=== PATIENT | male | born 1995 | race Caucasian/White ===

== ENCOUNTER 2024-01-01 16:40 | Emergency (ER) | payer OTHER, SELFPAY ==
[2024-01-01 16:44] VITALS: BP 149/104
[2024-01-01 17:09] LABS: % Eosinophils 3.8 % (0-6); % Immature Granulocytes 0.2 % (0-0.5); % Lymphocytes 17.6 % (20.5-51.1); % Neutrophils 72.4 % (42.2-75.2); Absolute Basophils 0.1 10^3/uL (0-0.2); Absolute Eosinophils 0.4 10^3/uL (0-0.7); Absolute Lymphocytes 1.6 10^3/uL (1.2-3.4); Absolute Monocytes 0.5 10^3/uL (0.1-0.6); Absolute Neutrophils 6.7 10^3/uL (1.4-6.5); Hematocrit 49.7 % (39.0-52.0); Hemoglobin 16.8 g/dL (13.0-18.0); Mean Corp Hgb Conc. 33.8 g/dL (33.0-37.0); Mean Corpuscular Hgb 29.4 pg (27.0-31.0); Mean Platelet Volume 10.1 fL (7.4-10.4); Nucleated Red Blood Cells % 0 % (-); Platelet Count 171 10^3/uL (130-400); Red Blood Cell Count 5.71 10^6/uL (4.70-6.10); White Blood Cell Count 9.3 10^3/uL (4.8-10.8)
[2024-01-01 17:23] LABS: ALT (SGPT) 60 U/L (0-50); AST (SGOT) 42 U/L (17-59); Albumin 4.8 g/dl (3.5-5.0); Alkaline Phosphatase 48 U/L (38-126); Blood Urea Nitrogen 14 mg/dl (9-20); Carbon Dioxide 30 mmol/L (22-30); Chloride 100 mmol/L (98-107); Glucose 126 mg/dl (70-99); Potassium 4.3 mmol/L (3.5-5.1); Sodium 139 mmol/L (135-145); Total Bilirubin 0.7 mg/dl (0.2-1.3); Total Protein 7.7 g/dl (6.3-8.2); eGFR > 60.00
[2024-01-01 17:32] LABS: Troponin I < 0.012 ng/ml
[2024-01-01 18:01] LABS: TSH Reflex To Free T4 1.56 uIU/ml (0.47-4.68)
--- NOTE | 2024-01-01 18:41 | ED.GENMED ---
History of Present Illness
General
Chief Complaint: Chest Pain
Source: patient
Exam Limitations: none
Time Seen by Provider: 01/01/24 17:43
Nursing documentation reviewed up to this point in time: agreed with
Travel History
Have you had any contact with someone who has COVID-19?: No
Do you have any symptoms of coronavirus? Fever > 100 degrees, chills, cough, shortness of breath, sore throat, loss of taste or smell, muscle aches, or headache?: No
History of Present Illness
History of Present Illness:
28 yo male with h/o hypothyroidism presents stating he's had pain across his lower back for past week. Since 12 a.m. today has had constant, sharp shooting left chest pains. Didn't sleep well through the night due to these pains. Went to [facility],
had EKG and was told there was an abnormality, irregular rate so sent here for evaluation. Pt denies caffeine use. He states the pains are there now.
Past History
Past History
ED Past Medical History: Hypothyroidism
ED Past Surgical History: Urological
Social History
Tobacco: Non-smoker
Alcohol: Occasional
Personal: Single
Living: with family
Employment: Employed
Review of Systems
Review of Systems
Allergies reviewed?: Yes
All Other Systems: ROS reviewed and negative except as documented in HPI and ROS
Constitutional: Denies fever
Respiratory: Denies cough or trouble breathing
Cardiac: Reports chest pain and palpitations; Denies diaphoresis or syncope
ABD/GI: Denies abdominal pain or nausea
Musculoskeletal: Reports back pain (low back pain)
Skin: Reports no symptoms
Neurological: Reports no symptoms
Phy Exam
Physical Exam
Physical Exam:
GENERAL: No acute distress. A&Ox3.
CONSTITUTIONAL: Afebrile.
EYES: clear, conjunctivae normal
ENMT: moist mucus membranes, Pharynx nl
RESPIRATORY: Regular respirations, nonlabored, lungs clear.
CARDIOVASCULAR: Regular rate and occasional irregular beat, no murmurs, no rubs.
GI: Soft, nontender, normal BS
MUSCULOSKELETAL: Moves with ease. Well perfused. Full ROM of spine, mild tenderness to palpation of lower back ST, also palpation of left chest pectoral muscle elicits pain.
SKIN: Warm, dry, pink
PSYCH: Normal mood and affect. Well kept, interactive and appropriate
NEUROLOGIC: Awake, alert and oriented. No focal neurological deficits
Scores
Heart Score for Chest Pain Patients
STEMI patient?: Not applicable
Course
Orders/Labs/Results
Orders:
Orders
01/01/24 16:46
Electrocardiogram (*1) Urgent
Reason for Study: Chest Pain
EKG- Treatment ONCE
01/01/24 16:53
Complete Blood Count/With Diff Urgent
Comprehensive Metabolic Panel Urgent
TSH Reflex To Free T4 Urgent
Troponin I Urgent
01/01/24 17:42
CR Chest - 2 Views Urgent
Comment:
Reason For Exam: SOB
Abnormal Lab Results
01/01/24
16:53
Absolute Neuts (auto) 6.7 H 10^3/uL
(1.4-6.5)
Lymphocytes % 17.6 L %
(20.5-51.1)
Glucose 126 H mg/dl
(70-99)
ALT 60 H U/L
(0-50)
01/01/24 16:53
01/01/24 16:53
Vital Signs
Initial and Last Documented VS:
Initial Vital Signs
Temp Pulse Resp BP Pulse Ox
97.9 F 78 22 149/104 100
01/01/24 16:44 01/01/24 16:44 01/01/24 16:44 01/01/24 16:44 01/01/24 16:44
Last Documented Vital Signs
Temp Pulse Resp BP Pulse Ox
97.9 F 70 16 132/94 100
01/01/24 16:44 01/01/24 19:24 01/01/24 19:24 01/01/24 19:24 01/01/24 16:44
MDM/Problems Addressed
Differential Diagnosis Includes:
Musculoskeletal back pain
Musculoskeletal chest pain
MDM/Problems Addressed:
28 yo male with h/o hypothyroidism presents stating he's had pain across his lower back for past week. Since 12 a.m. today has had constant, sharp shooting left chest pains. Didn't sleep well through the night due to these pains. Went to [facility],
had EKG and was told there was an abnormality, irregular rate so sent here for evaluation. Pt denies caffeine use. He states the pains are there now.
EKG: NSR with PAC's
NAD
01/01/2024 1805 PM
CBC normal
CMP normal
Troponin normal
TSH normal
01/01/2024 1905 PM
Chest x-ray normal
Pt reassured PAC's are not pathologic in his case
This is most likely musculoskeletal pain as patient is tender across his lower back soft tissues and pain is worse when he bends to touch his toes
Also left chest wall is tender to palpation
Pt stable for discharge.
*Critical Care Note
Total Time (30-74mins, 75-104mins- exclusive of procedures): Not Applicable
ED Attending Note
-
Portions of this chart may have been created with voice recognition software.� Occasional wrong word or��sound alike� substitutions may have occurred due to the inherent limitations of voice recognition software.
Discharge Plan
Departure
Patient Disposition: Home (Routine Discharge)
Date of Disposition: 01/01/24
Time of Disposition: 19:12
Patient with high blood pressure during this ER visit?: No
Condition: Good
Discharge Problem:
Low back pain, Atypical chest pain, Acute chest wall pain
Instructions: Chest Pain That Is Not Caused by the Heart (DC), Low Back Pain ED, Heart Palpitations
Referrals:
Micheal Latif DO [Family Provider] - As needed
Activity Restrictions/Additional Instructions:
As we discussed, there is nothing worrisome in your workup here today. No sign of your heart being the cause of your symptoms.
The palpitations or skipped beats that you feel are called PACs or premature atrial contractions and they are not dangerous or worrisome in someone your age with no previous cardiac history.
Your back and chest wall pains are most likely muscular. Ibuprofen 600 mg (with food) every 6 hours as needed for pain.
Start exercising to strengthen your abdominal and core muscles, this can help back pain
Interventions
Interventions:
*General Assessment Last Done: 01/01/24 19:39
*Neglect/Abuse Screening Last Done: 01/01/24 16:42
*Nursing Disposition Last Done: 01/01/24 19:39
ED- Cardiac Assessment Last Done: 01/01/24 18:30
Discharge Date and Time
Discharge Date/Time: 01/01/24 19:40
[2024-01-01 19:24] VITALS: BP 132/94
== END 2024-01-01 19:40 | disposition home or self-care (01) ==
LOC: EMR 16:40
PROVIDERS: EMERGENCY PHYSICIAN Emergency Medicine; FAMILY PHYSICIAN Family Medicine
DX: R07.89 Other chest pain (principal); M54.50 Low back pain, unspecified; E03.9 Hypothyroidism, unspecified
CPT/HCPCS: 99285; 71046; 80053; 84443; 84484; 85025; 93005; 99284

== ENCOUNTER → 2024-02-17 09:59 | Outpatient (REF) | payer OTHER, SELFPAY | LOC: RAD 09:59 | PROVIDERS: ATTENDING PHYSICIAN Otolaryngology; FAMILY PHYSICIAN Family Medicine | DX: R13.14 Dysphagia, pharyngoesophageal phase (principal) | CPT/HCPCS: 74210 ==

== ENCOUNTER → 2024-06-01 12:50 | Outpatient (REF) | payer OTHER, BC, SELFPAY | LOC: HWRCS 12:50 | PROVIDERS: ATTENDING PHYSICIAN Internal Medicine Cardiovascular Disease; FAMILY PHYSICIAN Family Medicine | DX: R00.2 Palpitations (principal) | CPT/HCPCS: 93306 ==

== ENCOUNTER 2024-06-28 19:24 | Emergency (ER) | payer BC, SELFPAY ==
[2024-06-28 19:24] VITALS: BMI 36.9
[2024-06-28 19:26] VITALS: BP 190/107
[2024-06-28 20:00] VITALS: BP 171/91
[2024-06-28 20:01] VITALS: BP 171/91
--- NOTE | 2024-06-28 20:29 | ED.GENMED ---
History of Present Illness
General
Chief Complaint: Breathing Problem
Source: patient and spouse
Exam Limitations: none
Time Seen by Provider: 06/28/24 20:10
Nursing documentation reviewed up to this point in time: agreed with
History of Present Illness
History of Present Illness:
29-year-old male presents with shortness of breath, asthma as a child none recently was doing some outside work recently [place] thought he was having an asthma flare using his inhaler started on prednisone 50
mg yesterday at an urgent care feels like he cannot empty his lungs or get a complete breath, no fevers no hemoptysis no calf pain
Past History
Past History
ED Past Medical History: Asthma and Hypothyroidism
ED Past Surgical History: Urological
Social History
Tobacco: Non-smoker
Alcohol: Occasional
Drug: None
Personal: Single
Living: with family
Employment: Employed
Review of Systems
Review of Systems
All Other Systems: Not applicable
Constitutional: Denies fever or fatigue
EENT: Reports no symptoms
Respiratory: Reports cough and trouble breathing
Cardiac: Reports no symptoms
ABD/GI: Reports no symptoms
: Reports no symptoms
Musculoskeletal: Reports no symptoms
Skin: Reports no symptoms
Endocrine: Reports no symptoms
Hematologic/Lymphatic: Reports no symptoms
Phy Exam
Physical Exam
Physical Exam:
Physical Exam
General: 29 male coughing
Neck: No jaundice
Heart: s1/s2 regular rate and rhythm, no murmur. equal radial pulses.
Lungs: Diminished bilateral
Abdomen: Nontender
Neuro: alert and oriented. no focal neurological deficits
Skin: no rash
Psychiatric: well kept. interactive and cooperative
Extremities: no edema. no calf tenderness.
Course
Orders/Labs/Results
Orders:
Orders
06/28/24 19:33
Electrocardiogram (*1) Urgent
Reason for Study: Shortness of Breath
EKG- Treatment ONCE
06/28/24 20:28
Cardiac Monitoring- Treatment ONCE
Dexamethasone Sod Phosphate [Decadron] 10 mg IV NOW STA
Ipratropium/Albuterol Sulfate [Duoneb] 3 ml INH R NOW STA
CR Chest - 2 Views Urgent
Comment:
Reason For Exam: sob
06/28/24 20:52
Complete Blood Count/With Diff Urgent
Comprehensive Metabolic Panel Urgent
D-Dimer Urgent
NT-proBNP Urgent
Troponin I Urgent
Abnormal Lab Results
06/28/24
20:52
Absolute Neuts (auto) 7.1 H 10^3/uL
(1.4-6.5)
Neutrophils % 82.2 H %
(42.2-75.2)
Lymphocytes % 13.7 L %
(20.5-51.1)
Carbon Dioxide 19 L mmol/L
(22-30)
Glucose 170 H mg/dl
(70-99)
Calcium 10.7 H mg/dl
(8.4-10.2)
ALT 54 H U/L
(0-50)
Albumin 5.2 H g/dl
(3.5-5.0)
06/28/24 20:52
06/28/24 20:52
Vital Signs
Initial and Last Documented VS:
Initial Vital Signs
Temp Pulse Resp BP Pulse Ox
98.1 F 98 16 190/107 97
06/28/24 19:26 06/28/24 19:26 06/28/24 19:26 06/28/24 19:26 06/28/24 19:26
Last Documented Vital Signs
Temp Pulse Resp BP Pulse Ox
98.1 F 106 18 165/100 97
06/28/24 19:26 06/28/24 21:45 06/28/24 21:45 06/28/24 21:09 06/28/24 21:45
MDM/Problems Addressed
Differential Diagnosis Includes:
Asthma bronchitis pneumonia heart failure less likely PE
MDM/Problems Addressed:
Shortness of breath
Chronic conditions affecting care:
Asthma
Acute Exacerbation and/or Progression of Chronic Illness:
Asthma
*Radiology
Radiology exam reviewed: preliminary read by ED provider
*Pulse Oximetry
Patient hypoxic: no
*EKG
Interpreted by ED Provider?: Yes
Interpretation: abnormal
Comparison EKG: no comparison EKG present
Heart Rate: 78
Rate: normal
Rhythm: sinus
Ischemia: non-specific ST changes
*Jamb Cutter Interpretation
Rate: normal
Interpretation: normal
Rhythm: sinus
*Critical Care Note
Total Time (30-74mins, 75-104mins- exclusive of procedures): Not Applicable
Update Note
Update Note:
Update initial peak flow 3 50-400 will try nebs IV steroids also check a proBNP and D-dimer chest x-ray
9:30 PM chest x-ray noted no obvious pneumothorax troponin proBNP noted D-dimer is pending
10:12 PM patient feeling better peak flow up to 500
He has 4 more days of 50 mg prednisone will have him continue that we will set him up with a nebulizer and follow-up with the PCP and pulmonary
ED Attending Note
-
Portions of this chart may have been created with voice recognition software.� Occasional wrong word or��sound alike� substitutions may have occurred due to the inherent limitations of voice recognition software.
Discharge Plan
Departure
Patient Disposition: Home (Routine Discharge)
Date of Disposition: 06/28/24
Time of Disposition: 22:17
Patient with high blood pressure during this ER visit?: No
Condition: Good
Covid-19: Not Applicable
Discharge Problem:
Asthma
Instructions: Asthma, Adult (DC)
Prescriptions:
New
albuterol sulfate 2.5 mg/0.5 mL solution for nebulization
5 mg inhalation Q4H PRN (Reason: bronchospasm) Qty: 30 2RF
Referrals:
Michael Latif DO [Family Provider] - Next open appointment
Maddy العراقي DO [Active] - Next open appointment
Activity Restrictions/Additional Instructions:
Continue prednisone 50 mg a day as prescribed
Albuterol 1 to 2 puffs every 4-6 hours via puffer or nebulizer
Interventions
Interventions:
*Risk Screen - Suicide Last Done: 06/28/24 19:29
*General Assessment Last Done: 06/28/24 19:29
*Neglect/Abuse Screening Last Done: 06/28/24 19:29
ED- Fall Risk Assessment Last Done: 06/28/24 21:33
ED- Cardiac Assessment Last Done: 06/28/24 21:33
ED- Pulmonary Assessment Last Done: 06/28/24 21:33
Discharge Date and Time
Print Language: JAPANESE
[2024-06-28] MEDS: DECADRON 10 MG IV (20:34)
[2024-06-28] MEDS: DUONEB 3 ML INH (20:35)
[2024-06-28 21:04] LABS: % Basophils 0.3 % (0-2); % Eosinophils 0.1 % (0-6); % Immature Granulocytes 0.2 % (0-0.5); % Lymphocytes 13.7 % (20.5-51.1); % Monocytes 3.5 % (1.7-9.3); % Neutrophils 82.2 % (42.2-75.2); Absolute Lymphocytes 1.2 10^3/uL (1.2-3.4); Absolute Monocytes 0.3 10^3/uL (0.1-0.6); Absolute Neutrophils 7.1 10^3/uL (1.4-6.5); Hematocrit 47.3 % (39.0-52.0); Mean Corp Hgb Conc. 35.9 g/dL (33.0-37.0); Mean Corpuscular Hgb 30.6 pg (27.0-31.0); Mean Corpuscular Volume 85.1 fL (80.0-94.0); Mean Platelet Volume 9.3 fL (7.4-10.4); Nucleated Red Blood Cells % 0 % (-); Platelet Count 230 10^3/uL (130-400); Red Blood Cell Count 5.56 10^6/uL (4.70-6.10); Red Cell Dist. Width 11.9 % (11.5-14.5); White Blood Cell Count 8.6 10^3/uL (4.8-10.8)
[2024-06-28 21:09] VITALS: BP 165/100
[2024-06-28 21:18] LABS: ALT (SGPT) 54 U/L (0-50); AST (SGOT) 42 U/L (17-59); Albumin 5.2 g/dl (3.5-5.0); Alkaline Phosphatase 62 U/L (38-126); Blood Urea Nitrogen 14 mg/dl (9-20); Calcium 10.7 mg/dl (8.4-10.2); Carbon Dioxide 19 mmol/L (22-30); Chloride 104 mmol/L (98-107); Estimated Creatinine Clearance > 125 ml/min; Glucose 170 mg/dl (70-99); Potassium 4.4 mmol/L (3.5-5.1); Sodium 141 mmol/L (135-145); Total Bilirubin 0.6 mg/dl (0.2-1.3); Total Protein 8.2 g/dl (6.3-8.2); eGFR > 60.00
[2024-06-28 21:28] LABS: NT-proBNP 36.9 pg/ml; Troponin I < 0.012 ng/ml
[2024-06-28 21:48] LABS: D-Dimer < 0.27 ug/mlFEU (0.00-0.50)
[2024-06-28 22:00] VITALS: BP 162/86
== END 2024-06-28 22:41 | disposition home or self-care (01) ==
LOC: EMR 19:24
PROVIDERS: EMERGENCY PHYSICIAN Emergency Medicine; FAMILY PHYSICIAN Family Medicine
DX: J45.909 Unspecified asthma, uncomplicated (principal); E03.9 Hypothyroidism, unspecified
CPT/HCPCS: 99283; 94640; 96374; 71046; 80053; 83880; 84484; 85025; 85379; 93005

== ENCOUNTER 2024-06-30 21:51 | Emergency (ER) | payer BC, SELFPAY ==
[2024-06-30 21:54] VITALS: BP 178/100
[2024-06-30 22:17] LABS: COVID-19 Antigen Negative (Negative)
[2024-07-01 00:32] VITALS: BP 146/83
[2024-07-01 00:48] LABS: % Basophils 0.1 % (0-2); % Immature Granulocytes 2.2 % (0-0.5); % Lymphocytes 10.4 % (20.5-51.1); % Monocytes 6.4 % (1.7-9.3); % Neutrophils 80.9 % (42.2-75.2); Absolute Immature Granulocytes 0.3 10^3/uL (0-0.05); Absolute Lymphocytes 1.5 10^3/uL (1.2-3.4); Absolute Monocytes 0.9 10^3/uL (0.1-0.6); Absolute Neutrophils 11.6 10^3/uL (1.4-6.5); Hematocrit 44.5 % (39.0-52.0); Hemoglobin 15.7 g/dL (13.0-18.0); Mean Corp Hgb Conc. 35.3 g/dL (33.0-37.0); Mean Corpuscular Hgb 30.8 pg (27.0-31.0); Mean Corpuscular Volume 87.4 fL (80.0-94.0); Mean Platelet Volume 9.4 fL (7.4-10.4); Nucleated Red Blood Cells % 0 % (-); Platelet Count 221 10^3/uL (130-400); Red Blood Cell Count 5.09 10^6/uL (4.70-6.10); Red Cell Dist. Width 12.4 % (11.5-14.5); White Blood Cell Count 14.3 10^3/uL (4.8-10.8)
[2024-07-01 01:04] LABS: Troponin I < 0.012 ng/ml
--- NOTE | 2024-07-01 01:05 | ED.GENMED ---
History of Present Illness
General
Chief Complaint: Breathing Problem
Source: patient and family
Exam Limitations: none
Time Seen by Provider: 06/30/24 23:58
Nursing documentation reviewed up to this point in time: agreed with
History of Present Illness
History of Present Illness:
Pleasant 29-year-old male presents with congestion and shortness of breath. Was seen in the emergency department several days ago. Discharged with an asthma exacerbation. Patient was prescribed and given a nebulizer and albuterol. He states that
he took the nebulizer to this evening and it did not seem to help. He has also been taking prednisone as well as his rescue inhaler. Patient had a negative D-dimer at his last visit. Denies fever, chills, calf pain. Denies any abdominal pain or
headache.
Past History
Past History
ED Past Medical History: Asthma and Hypothyroidism
ED Past Surgical History: Urological
Social History
Tobacco: Non-smoker
Alcohol: Occasional
Drug: None
Personal: Single
Living: with family
Employment: Employed
Review of Systems
Review of Systems
Allergies reviewed?: Yes
Other source history: family
All Other Systems: ROS reviewed and negative except as documented in HPI and ROS
Constitutional: Reports no symptoms
EENT: Reports no symptoms
Respiratory: Reports cough and trouble breathing
Cardiac: Reports no symptoms
ABD/GI: Reports no symptoms
: Reports no symptoms
Musculoskeletal: Reports no symptoms
Skin: Reports no symptoms
Neurological: Reports no symptoms
Endocrine: Reports no symptoms
Hematologic/Lymphatic: Reports no symptoms
Psychiatric: Reports no symptoms
Phy Exam
General Physical Exam
General Presentation: well appearing and no apparent distress
General Skin: warm and dry
General Habitus: normal
General Mental: alert
General Hydration: appears well hydrated
ENT Exam
ENT Exam: EOMI, pharynx normal, neck supple and normocephalic
Eye Exam
Eye Exam: PERRL, cornea clear and conjunctiva normal
Cardiovascular Exam
Cardiovascular Exam: regular rate/rhythm, no edema, no murmur and normal peripheral pulses
Pulmonary Exam
Pulmonary Exam: lungs clear, no respiratory distress, no rales, no crackles, no rhonchi, no stridor, no wheezing and no cough
Gastrointestinal Exam
Gastrointestinal Exam: normal bowel sounds, non tender, soft, no organomegaly, no pulsatile mass and non distended
Neurological Exam
Neurological Exam: alert, oriented x3, no motor deficits and speech normal
Musculoskeletal Exam
Musculoskeletal Exam: full ROM and no edema
Skin Exam
Skin Exam: normal color, warm/dry, no rash and no petechia
Psychiatric Exam
Psychiatric Exam: normal mood/affect
Course
Orders/Labs/Results
Orders:
Orders
06/30/24 21:58
CR Chest - 2 Views Urgent
Comment:
Reason For Exam: SOB
06/30/24 21:59
COVID-19 Antigen Urgent
Source: Nasal Swab
06/30/24 22:09
Electrocardiogram (*1) Urgent
Reason for Study: Shortness of Breath
EKG- Treatment ONCE
07/01/24 00:16
CT Chest Pe Study Urgent
Comment:
Reason For Exam: prolonged LICEA
07/01/24 00:25
Complete Blood Count/With Diff Urgent
Comprehensive Metabolic Panel Urgent
Troponin I Urgent
07/01/24 01:58
Ipratropium/Albuterol Sulfate [Duoneb] 3 ml INH R NOW ONE
07/01/24 02:22
Tiotropium Patterson 2.5 Mcg [Spiriva Respimat 2.5 Mcg] 2 puff INH R NOW STA
Abnormal Lab Results
07/01/24
00:25
WBC 14.3 H 10^3/uL
(4.8-10.8)
Abs Immat Gran (auto) 0.3 H 10^3/uL
(0-0.05)
Absolute Neuts (auto) 11.6 H 10^3/uL
(1.4-6.5)
Absolute Monos (auto) 0.9 H 10^3/uL
(0.1-0.6)
Immature Gran % 2.2 H %
(0-0.5)
Neutrophils % 80.9 H %
(42.2-75.2)
Lymphocytes % 10.4 L %
(20.5-51.1)
Potassium 5.2 H mmol/L
(3.5-5.1)
BUN 28 H mg/dl
(9-20)
Glucose 120 H mg/dl
(70-99)
07/01/24 00:25
07/01/24 00:25
Vital Signs
Initial and Last Documented VS:
Initial Vital Signs
Temp Pulse Resp BP Pulse Ox
98.9 F 86 20 178/100 99
06/30/24 21:54 06/30/24 21:54 06/30/24 21:54 06/30/24 21:54 06/30/24 21:54
Last Documented Vital Signs
Temp Pulse Resp BP Pulse Ox
98.9 F 48 18 160/93 97
06/30/24 21:54 07/01/24 00:32 07/01/24 00:32 07/01/24 02:00 07/01/24 02:30
*Critical Care Note
Total Time (30-74mins, 75-104mins- exclusive of procedures): Not Applicable
ED Attending Note
-
Portions of this chart may have been created with voice recognition software.� Occasional wrong word or��sound alike� substitutions may have occurred due to the inherent limitations of voice recognition software.
Discharge Plan
Departure
Patient Disposition: Home (Routine Discharge)
Date of Disposition: 07/01/24
Time of Disposition: 02:25
Patient with high blood pressure during this ER visit?: Yes
Condition: Good
Discharge Problem:
Acute dyspnea
Instructions: Shortness of Breath (Dyspnea) (DC), BLOOD PRESSURE
Prescriptions:
No Action
albuterol sulfate 2.5 mg/0.5 mL solution for nebulization
5 mg inhalation Q4H PRN (Reason: bronchospasm) Qty: 30 2RF
albuterol sulfate 90 mcg/actuation HFA aerosol inhaler
2 puff inhalation QID PRN (Reason: shortness of breath or wheezing) Qty: 8.5 6RF
Referrals:
Savannah Back MD [Active] - Next open appointment
Michael Latif DO [Family Provider] -
Activity Restrictions/Additional Instructions:
It was a pleasure meeting you and taking part in your care. We hope for your continued healing and wellness.
Please read discharge instructions in their entirety. However, they are for general education and may not describe your exact diagnosis at discharge. Information on your ER visit and medical conditions were discussed with you along with appropriate
follow up information...
If indicated, please take your medications as instructed and indicated on discharge paperwork.
Please schedule a follow up appointment as directed. Call to schedule an appointment
Please return to the emergency department with ANY change in, persisting, or worsening of symptoms. If any of your symptoms do not improve, or persist, or become more severe within 6-12 hours, please return to the emergency department for further
care.
Please return to the emergency department if you develop a headache, neck pain/stiffness, fever greater than 100.4F, chest pain, shortness of breath, persistent nausea, vomiting, slurred speech, difficulty walking, numbness/tingling, weakness, signs
of infection or any other symptoms that are worrisome to you.
If you have any questions or concerns please do not hesitate to call the Hospital at or E-mail me directly at [email or web address]
Interventions
Interventions:
*Risk Screen - Suicide Last Done: 06/30/24 21:54
*General Assessment Last Done: 06/30/24 21:54
*Neglect/Abuse Screening Last Done: 06/30/24 21:54
ED- Fall Risk Assessment Last Done: 07/01/24 02:49
*ED COVID-19 Vaccine History Last Done: 07/01/24 02:49
*Nursing Disposition Last Done: 07/01/24 02:49
ED- Cardiac Assessment Last Done: 07/01/24 00:13
ED- Pulmonary Assessment Last Done: 07/01/24 00:13
Discharge Date and Time
Discharge Date/Time: 07/01/24 02:50
Print Language: PERSIAN
[2024-07-01 01:16] LABS: ALT (SGPT) 38 U/L (0-50); AST (SGOT) 31 U/L (17-59); Albumin 4.8 g/dl (3.5-5.0); Alkaline Phosphatase 68 U/L (38-126); Blood Urea Nitrogen 28 mg/dl (9-20); Calcium 10.1 mg/dl (8.4-10.2); Carbon Dioxide 22 mmol/L (22-30); Chloride 106 mmol/L (98-107); Glucose 120 mg/dl (70-99); Potassium 5.2 mmol/L (3.5-5.1); Sodium 141 mmol/L (135-145); Total Bilirubin 0.5 mg/dl (0.2-1.3); Total Protein 7.6 g/dl (6.3-8.2); eGFR > 60.00
[2024-07-01 01:30] VITALS: BP 143/80
[2024-07-01 02:00] VITALS: BP 160/93
[2024-07-01] MEDS: DUONEB 3 ML INH (02:05)
[2024-07-01] MEDS: SPIRIVA RESPIMAT 2.5 MCG 2 PUFF INH (02:43)
== END 2024-07-01 02:50 | disposition home or self-care (01) ==
LOC: EMR 21:51
PROVIDERS: Emergency Medicine; EMERGENCY PHYSICIAN Student in an Organized Health Care Education/Training Program; FAMILY PHYSICIAN Family Medicine
DX: J45.901 Unspecified asthma with (acute) exacerbation (principal); E03.9 Hypothyroidism, unspecified
CPT/HCPCS: 99284; 94640; 71046; 71275; 80053; 84484; 85025; 87811; 93005; Q9967

== ENCOUNTER 2024-09-14 03:32 | Emergency (ER) | payer BC, SELFPAY ==
[2024-09-14 03:42] VITALS: BP 151/102
[2024-09-14 04:09] VITALS: BP 155/94
[2024-09-14 04:12] VITALS: BMI 39.4
--- NOTE | 2024-09-14 04:29 | ED.GENMED ---
History of Present Illness
General
Chief Complaint: Chest Pain
Source: patient, previous radiology exam (Several previous unremarkable chest x-rays as well as unremarkable CT of the chest/PE study June 2024) and previous hospital records (Several previous ED visits for chest pain complaints as well as
shortness of breath, extensive repeated unremarkable cardiac as well as pulmonary evaluations.)
Exam Limitations: none
Time Seen by Provider: 09/14/24 04:11
Nursing documentation reviewed up to this point in time: agreed with
History of Present Illness
History of Present Illness:
This is a 29-year-old gentleman who has history of asthma, hypothyroidism, congenital esophageal webs along with GERD and history of PVCs who has been following with several specialist including cardiology, GI, cancer spec regarding ongoing
shortness of breath and intermittent chest pain. Maintained on Cardizem for PVCs and was eventually taken off of metoprolol due to ongoing dyspnea.
Last night however he began to not feel well, generalized aches, chills, mild dry cough with subjective fever. He took a dose of Advil 400 mg around 10 PM. Was able to fall asleep but then awoke around 3 this morning with generalized chest
discomfort and feeling short of breath and continues with some achiness. He does note mild left posterior sore throat but denies nasal congestion, no earache, no neck nor back pain.
No close contacts with similar symptoms.
No recent travel.
A home COVID test was negative.
His daily medications include: Symbicort, diltiazem 30 mg twice daily, levothyroxine, Prevacid.
Past History
Past History
ED Past Medical History: Asthma, GERD, Hypothyroidism, Other (Esophageal webs/esophageal strictures) and Other (PVCs)
ED Past Surgical History: Urological and Other (Upper endoscopies with esophageal stricture dilation)
Social History
Tobacco: Non-smoker
Alcohol: Occasional
Drug: None
Personal: Single
Living: with family
Employment: Employed
Family History
Family History: Other (Noncontributory)
Phy Exam
Physical Exam
Physical Exam:
GENERAL: 29-year-old overweight male appears his stated age, bright and alert, pleasant, appears in no acute distress. Low-grade fever noted. Rare brief dry cough noted during exam. No respiratory distress.
EYE: pupils equal and reactive. anicteric
NECK: Supple, nontender, no meningismus, no significant adenopathy.
ENT: posterior pharynx is very minimally injected without edema nor exudate, scant clear postnasal drip is noted, oral mucosa is moist. TM clear b/l, nares have minimally boggy turbinates with scant clear rhinorrhea.
CARDIAC: Regular rhythm, mildly tachycardic. no murmur.
LUNGS: Clear breath sounds bilaterally, no acute respiratory distress, no wheezes/rales/rhonchi
ABDOMEN: Soft, nondistended, without focal tenderness, no r/g, no cvat. normoactive BS.
NEUROLOGICAL: Alert and oriented x3, no focal neuro deficits. Gait is steady.
SKIN: Mildly hot to touch and dry, normal color, skin intact. No rash.
MUSCULOSKELETAL: No C/C/E. peripheral pulses are full and equal b/l. No palpable tenderness.
PSYCH: Normal and appropriate interaction.
Scores
Heart Score for Chest Pain Patients
STEMI patient?: Not applicable
Sepsis
Sepsis Screening
Sepsis Assessment: Sepsis Ruled Out
Sepsis Screen
Sepsis Screen: Sepsis Ruled Out
Date: 09/14/24
Time: 06:16
Course
Orders/Labs/Results
Orders:
Orders
09/14/24 03:33
Electrocardiogram (*1) Urgent
Reason for Study: Chest Pain
09/14/24 03:34
EKG- Treatment ONCE
09/14/24 04:27
Acetaminophen [Tylenol] 1,000 mg PO NOW STA
09/14/24 04:28
Encourage PO Hydration-Treatme ONCE
CR Chest - 2 Views Urgent
Comment:
Reason For Exam: cough, fever
09/14/24 04:51
COVID-19 Antigen Urgent
Source: Nasal Swab
09/14/24 04:52
Influenza A+B Rapid Molecular Urgent
JAMAL Source: Nasal Swab
Specimen Description:
09/14/24 04:57
Lipase Urgent
09/14/24 03:33
09/14/24 03:33
Vital Signs
Initial and Last Documented VS:
Initial Vital Signs
Temp Pulse Resp BP Pulse Ox
100.8 F H 121 18 151/102 98
09/14/24 03:42 09/14/24 03:42 09/14/24 03:42 09/14/24 03:42 09/14/24 03:42
Last Documented Vital Signs
Temp Pulse Resp BP Pulse Ox
100.8 F H 110 16 155/94 98
09/14/24 03:42 09/14/24 04:09 09/14/24 04:09 09/14/24 04:09 09/14/24 04:09
MDM/Problems Addressed
Differential Diagnosis Includes:
Patient presents with acute febrile illness accompanied with generalized aches, mild sore throat, dry cough, mild generalized chest discomfort and mild shortness of breath.
Overall appears viral URI in nature, concern for COVID-19, acute influenza, other consideration is pneumonia.
EKG shows sinus tachycardia, flattened T waves but overall similar and unchanged from previous EKG June 2024 save her heart rate has increased from 80 to now 115. Sinus tachycardia likely related to fever.
No history of thromboembolism nor risk factors for such.
Will give Tylenol for fever, encourage clear liquids.
Will check COVID antigen as well as rapid influenza and will check chest x-ray.
At this point no indication for laboratory studies. Overall well in appearance. Although history of asthma, lungs are clear to auscultation,
At this point nothing to signify acute exacerbation of asthma.
Chronic conditions affecting care: Arrhythmia (PVCs) and Asthma
*Radiology
Radiology exam reviewed: preliminary read by ED provider (Chest x-ray is unremarkable. Clear lung sutton. Unchanged from previous.)
*Pulse Oximetry
Patient hypoxic: no
*EKG
Interpreted by ED Provider?: Yes
Comparison EKG: no changes (Unchanged from previous June 2024 save for heart rate has increased from 80 to now 115)
Rate: tachycardiac
Rhythm: sinus
[place]: normal axis
Interval: normal interval
QRS Pattern: normal QRS
Ischemia: non-specific ST changes
*Gun Examiner Interpretation
Rate: tachycardiac
Interpretation: abnormal
Rhythm: sinus
*Critical Care Note
Total Time (30-74mins, 75-104mins- exclusive of procedures): Not Applicable
Update Note
Update Note:
Fever dissipating and patient is feeling markedly improved. No further chest pain, no shortness of breath.
COVID and influenza testing are negative.
Chest x-ray is unremarkable. No evidence of infiltrate and lungs remain clear to auscultation.
I suspect viral URI.
Recommend supportive measures, rest, staying well-hydrated, continuing ibuprofen versus Tylenol as needed for fever and aches.
Prompt follow-up with PCP for recheck.
Return precautions discussed.
ED Attending Note
-
Portions of this chart may have been created with voice recognition software.� Occasional wrong word or��sound alike� substitutions may have occurred due to the inherent limitations of voice recognition software.
Discharge Plan
Departure
Patient Disposition: Home (Routine Discharge)
Date of Disposition: 09/14/24
Time of Disposition: 06:09
Patient with high blood pressure during this ER visit?: Yes
Condition: Good
Discharge Problem:
Acute viral URI
Instructions: Upper respiratory infection in adults - Discharge instructions, BLOOD PRESSURE
Prescriptions:
No Action
albuterol sulfate 2.5 mg/0.5 mL solution for nebulization
5 mg inhalation Q4H PRN (Reason: bronchospasm) Qty: 30 2RF
albuterol sulfate 90 mcg/actuation HFA aerosol inhaler
2 puff inhalation QID PRN (Reason: shortness of breath or wheezing) Qty: 8.5 6RF
Referrals:
Michael Latif, [Family Provider] - Call in 1-3 days for appt
Activity Restrictions/Additional Instructions:
Stay well-hydrated on a daily basis, rest.
You may take ibuprofen 600 to 800 mg (30 ml-40 ml) every 6 hours as needed for fever, aches.
Alternatively, you can take acetaminophen 1000 mg (30 ml) every 4 hours as needed for fever, aches.
Follow-up with your primary care physician this week or next week especially if symptoms persist. If you are feeling worse especially if you develop severe pain, severe shortness of breath, intractable vomiting or any other worrisome symptom,
prompt return to the ER for further evaluation.
Interventions
Interventions:
*Risk Screen - Suicide Last Done: 09/14/24 03:36
*General Assessment Last Done: 09/14/24 03:42
*Neglect/Abuse Screening Last Done: 09/14/24 03:36
ED- Fall Risk Assessment Last Done: 09/14/24 04:02
*ED COVID-19 Vaccine History Last Done: 09/14/24 04:02
ED- Cardiac Assessment Last Done: 09/14/24 04:02
Discharge Date and Time
Print Language: SPANISH
[2024-09-14] MEDS: TYLENOL 1000 MG PO (04:44)
[2024-09-14 05:00] VITALS: BP 144/88
[2024-09-14 05:25] LABS: Lipase 113 U/L (23-300)
[2024-09-14 05:26] LABS: COVID-19 Antigen Negative (Negative)
[2024-09-14 06:00] VITALS: BP 135/72
[2024-09-14 06:30] VITALS: BP 135/72
== END 2024-09-14 06:30 | disposition home or self-care (01) ==
LOC: EMR 03:32
PROVIDERS: EMERGENCY PHYSICIAN Emergency Medicine; FAMILY PHYSICIAN Family Medicine
DX: J06.9 Acute upper respiratory infection, unspecified (principal); B97.89 Other viral agents as the cause of diseases classified elsewhere; J45.909 Unspecified asthma, uncomplicated; E03.9 Hypothyroidism, unspecified; Z79.899 Other long term (current) drug therapy; Z86.79 Personal history of other diseases of the circulatory system
CPT/HCPCS: 99285; 71046; 83690; 87502; 87811; 93005

== ENCOUNTER 2024-11-18 19:16 | Emergency (ER) | payer BC, SELFPAY ==
[2024-11-18 19:20] VITALS: BP 174/94
[2024-11-18 19:52] LABS: Urine Albumin Negative (Neg - Trace); Urine Bilirubin Negative (Negative); Urine Character Clear (Clear); Urine Color Yellow; Urine Glucose Negative (Negative); Urine Ketone Negative (Negative); Urine Leukocyte Negative (Negative); Urine Nitrite Negative (Negative); Urine Occult Blood Negative (Negative); Urine Specific Gravity 1.025 (<1.030); Urine Urobilinogen Negative (Neg - 1+)
[2024-11-18 19:55] LABS: % Basophils 0.8 % (0-2); % Immature Granulocytes 0.1 % (0-0.5); % Lymphocytes 28.4 % (20.5-51.1); % Monocytes 7.2 % (1.7-9.3); % Neutrophils 56.5 % (42.2-75.2); Absolute Basophils 0.1 10^3/uL (0-0.2); Absolute Eosinophils 0.5 10^3/uL (0-0.7); Absolute Lymphocytes 2.2 10^3/uL (1.2-3.4); Absolute Monocytes 0.6 10^3/uL (0.1-0.6); Absolute Neutrophils 4.3 10^3/uL (1.4-6.5); Hematocrit 44.3 % (39.0-52.0); Hemoglobin 15.7 g/dL (13.0-18.0); Mean Corp Hgb Conc. 35.4 g/dL (33.0-37.0); Mean Corpuscular Hgb 31.1 pg (27.0-31.0); Mean Corpuscular Volume 87.7 fL (80.0-94.0); Mean Platelet Volume 9.3 fL (7.4-10.4); Nucleated Red Blood Cells % 0 % (-); Platelet Count 254 10^3/uL (130-400); Red Blood Cell Count 5.05 10^6/uL (4.70-6.10); Red Cell Dist. Width 12.6 % (11.5-14.5); White Blood Cell Count 7.6 10^3/uL (4.8-10.8)
[2024-11-18 20:10] LABS: Lactic Acid 1.5 mmol/L (0.7-2.0)
[2024-11-18 20:12] LABS: ALT (SGPT) 36 U/L (0-50); AST (SGOT) 33 U/L (17-59); Albumin 4.8 g/dl (3.5-5.0); Alkaline Phosphatase 59 U/L (38-126); Blood Urea Nitrogen 17 mg/dl (9-20); Calcium 9.3 mg/dl (8.4-10.2); Carbon Dioxide 26 mmol/L (22-30); Chloride 101 mmol/L (98-107); Glucose 122 mg/dl (70-99); Lipase 151 U/L (23-300); Potassium 4.3 mmol/L (3.5-5.1); Sodium 138 mmol/L (135-145); Total Bilirubin 0.4 mg/dl (0.2-1.3); Total Protein 7.6 g/dl (6.3-8.2); eGFR > 60.00
[2024-11-18 23:47] VITALS: BP 140/81
--- NOTE | 2024-11-19 00:26 | ED.GENMED ---
History of Present Illness
General
Chief Complaint: Abdominal Pain
Time Seen by Provider: 11/18/24 22:52
History of Present Illness
History of Present Illness:
29-year-old male presenting with right upper quadrant abdominal pain radiating to his back for the past 1 week. Patient states that pain is unrelated to eating or certain positions. Patient denies nausea, vomiting, diarrhea, dysuria or hematuria.
Patient states that this is never happened before. Patient denies rash.
Past History
Past History
ED Past Medical History: Asthma, GERD, Hypothyroidism, Other (Esophageal webs/esophageal strictures) and Other (PVCs)
ED Past Surgical History: Urological and Other (Upper endoscopies with esophageal stricture dilation)
Social History
Tobacco: Non-smoker
Alcohol: Occasional
Drug: None
Personal: Single
Living: with family
Employment: Employed
Family History
Family History: Other (Noncontributory)
Phy Exam
Physical Exam
Physical Exam:
General: Alert, no acute distress
Head: NCAT
Eyes: clear conjunctiva
Neck: supple
Cardiac: regular rate and rhythm, no murmur
Lungs: clear to auscultation bilaterally. No wheezes, rales, or rhonchi. Speaking full unlabored sentences. No respiratory distress.
Abdomen: soft, nondistended right upper quadrant tenderness to palpation. Negative [place].. No rebound or guarding. No CVA tenderness bilaterally
MSK: no lower extremity edema bilaterally. No deformity
Skin: warm, dry. No rash to abdomen/flank
Neuro: Alert and oriented x3. no focal deficits
Course
Orders/Labs/Results
Orders:
Orders
11/18/24 19:42
Complete Blood Count/With Diff Urgent
Comprehensive Metabolic Panel Urgent
Lactic Acid Urgent
Lipase Urgent
Urine Culture Reflexed from UA [Urinalysis Reflex To Culture] Urgent
Date Specimen was Collected: 11/18/24
Time Specimen was Collected: 19:23
11/19/24 00:01
Abdominal Ltd US [US Abdomen Limited] Urgent
Comment:
Reason For Exam: ruq tenderness
11/19/24 00:36
Ketorolac [Toradol] 15 mg IV NOW STA
Abnormal Lab Results
11/18/24
19:42
MCH 31.1 H pg
(27.0-31.0)
Eosinophils % 7.0 H %
(0-6)
Glucose 122 H mg/dl
(70-99)
11/18/24 19:42
11/18/24 19:42
Vital Signs
Initial and Last Documented VS:
Initial Vital Signs
Temp Pulse Resp BP Pulse Ox
98.2 F 76 20 174/94 99
11/18/24 19:20 11/18/24 19:20 11/18/24 19:20 11/18/24 19:20 11/18/24 19:20
Last Documented Vital Signs
Temp Pulse Resp BP Pulse Ox
99.7 F 61 17 140/81 100
11/18/24 23:47 11/18/24 23:47 11/18/24 23:47 11/18/24 23:47 11/18/24 23:47
MDM/Problems Addressed
Differential Diagnosis Includes:
Biliary colic, acute cholecystitis, choledocholithiasis, kidney stone, pancreatitis
MDM/Problems Addressed:
Labs reviewed. WBC 7.6 with no left shift or bandemia. LFTs, lipase, creatinine, electrolytes, lactic acid within normal limits. UA negative for UTI or blood. Abdominal ultrasound shows mild fatty liver otherwise unremarkable. Discussed results
with patient at bedside. Stable for discharge home with PCP and GI follow-up
*Critical Care Note
Total Time (30-74mins, 75-104mins- exclusive of procedures): Not Applicable
ED Attending Note
-
Portions of this chart may have been created with voice recognition software.� Occasional wrong word or��sound alike� substitutions may have occurred due to the inherent limitations of voice recognition software.
Discharge Plan
Departure
Patient Disposition: Home (Routine Discharge)
Date of Disposition: 11/19/24
Time of Disposition: 02:15
Patient with high blood pressure during this ER visit?: Yes
Discharge Problem:
Abdominal pain, right upper quadrant
Instructions: Abdominal Pain
Prescriptions:
No Action
albuterol sulfate 2.5 mg/0.5 mL solution for nebulization
5 mg inhalation Q4H PRN (Reason: bronchospasm) Qty: 30 2RF
albuterol sulfate 90 mcg/actuation HFA aerosol inhaler
2 puff inhalation QID PRN (Reason: shortness of breath or wheezing) Qty: 8.5 6RF
levothyroxine 50 mcg Tablet
50 mcg PO DAILY
diltiazem HCl 120 mcg
2XD
lansoprazole 30 mg
Referrals:
Malika Echavarria CRNP [Family Provider] -
Luh Covarrubias MD [Active] -
Activity Restrictions/Additional Instructions:
Follow up with primary care doctor in 1-2 days. Follow up with gastroenterology if no improvement in 1 week
Take tylenol 975mg every 6 hours and/or ibuprofen 800mg every 8 hours with food as needed for pain
Return to the emergency department for persistent vomiting, fever or new/worsening symptoms
Interventions
Interventions:
*General Assessment Last Done: 11/18/24 19:20
ED- Fall Risk Assessment Last Done: 11/19/24 02:29
*Nursing Disposition Last Done: 11/19/24 02:29
[id number] Assessment Last Done: 11/18/24 23:22
Discharge Date and Time
Print Language: CYMRO
[2024-11-19] MEDS: TORADOL 15 MG IV (00:59)
[2024-11-19 02:29] VITALS: BP 158/105
== END 2024-11-19 02:33 | disposition home or self-care (01) ==
LOC: EMR 19:16
PROVIDERS: Student in an Organized Health Care Education/Training Program; EMERGENCY PHYSICIAN Emergency Medicine; FAMILY PHYSICIAN Nurse Practitioner Family
DX: R10.11 Right upper quadrant pain (principal); E03.9 Hypothyroidism, unspecified; J45.909 Unspecified asthma, uncomplicated; K21.9 Gastro-esophageal reflux disease without esophagitis; K76.0 Fatty (change of) liver, not elsewhere classified
CPT/HCPCS: 99284; 96374; 76705; 80053; 81003; 83605; 83690; 85025

== ENCOUNTER → 2024-11-26 13:32 | Outpatient (REF) | payer BC, SELFPAY | LOC: HWRAD 13:32 | PROVIDERS: ATTENDING PHYSICIAN Physician Assistant; FAMILY PHYSICIAN Nurse Practitioner Adult Health | DX: E06.3 Autoimmune thyroiditis (principal); R22.1 Localized swelling, mass and lump, neck | CPT/HCPCS: 76536 ==

== ENCOUNTER → 2025-01-01 16:05 | Outpatient (REF) | payer BC, SELFPAY | LOC: RAD 16:05 | PROVIDERS: ATTENDING PHYSICIAN Nurse Practitioner Family | DX: R10.11 Right upper quadrant pain (principal) | CPT/HCPCS: 74177; Q9967 ==

== ENCOUNTER → 2025-02-27 09:37 | Outpatient (REF) | payer BC, SELFPAY | LOC: RCS 09:37 | PROVIDERS: ATTENDING PHYSICIAN Nurse Practitioner; FAMILY PHYSICIAN Nurse Practitioner Adult Health | DX: R00.2 Palpitations (principal) | CPT/HCPCS: 93225; 93226 ==